=== PATIENT | male | born 1960 | race Asian ===

== ENCOUNTER 2021-09-11 15:08 | Emergency (ER) | payer SELFPAY ==
[~2021-09-11] VITALS: Ht 167.6 cm; Wt 63.5 kg
[2021-09-11 18:08] VITALS: BP 162/82
== END 2021-09-11 19:50 | disposition home or self-care (01) ==
LOC: EDBD 15:08 → ER 15:08
DX: S40.012A Contusion of left shoulder, initial encounter (principal); W03.XXXA Other fall on same level due to collision with another person, initial encounter; Y93.89 Activity, other specified; Y92.89 Other specified places as the place of occurrence of the external cause; Y99.8 Other external cause status
CPT/HCPCS: 73030